=== PATIENT | female | born 1960 | race Caucasian/White ===

== ENCOUNTER 2019-02-06 15:46 | Inpatient (IN) | payer MEDICAID ==
[~2019-02-06] VITALS: Ht 160 cm; Wt 73.5 kg
[2019-02-06 19:18] LABS: BASOPHILS % (AUTO) 0.7 % (0.0-2.0); HEMATOCRIT 39.5 % (36-46); HEMOGLOBIN 13.1 g/dL (12.0-16.0); LYMPHOCYTES # (AUTO) 3.1 K/uL (1.0-4.8); LYMPHOCYTES % (AUTO) 36.8 % (22.0-44.0); MEAN CORPUSCULAR HGB CONC 33.3 G/dL (31.0-37.0); MEAN CORPUSCULAR VOLUME 90 fL (80-100); MONOCYTES # (AUTO) 0.5 K/uL (0.1-1.0); MONOCYTES % (AUTO) 5.8 % (2.0-9.0); NEUTROPHILS # (AUTO) 4.8 K/uL (1.8-7.7); NEUTROPHILS % (AUTO) 55.7 % (40.0-70.0); PLATELET COUNT (AUTO) 296 K/uL (150-450); RED BLOOD CELL COUNT(AUTO) 4.37 MIL/uL (4.00-5.20)
[2019-02-06] MEDS ORDERED: IBUP-2354 PO (19:23)
[2019-02-06] MEDS ORDERED: LOSA25TA41 PO (19:23)
[2019-02-06] MEDS ORDERED: PARO10TA89 PO (19:23)
[2019-02-06] MEDS ORDERED: TRAZ-252 PO (19:23)
[2019-02-06 19:29] LABS: ANION GAP 7 mmol/L (8-16); CALCIUM, TOTAL 9.5 mg/dL (8.8-10.5); CARBON DIOXIDE 26 mmol/L (22-29); CHLORIDE 105 mmol/L (98-107); CREATININE 0.68 mg/dL (0.60-1.30); GLOMERULAR FILTR. RATE CALC > 60 mL/min (>60); GLUCOSE,RANDOM 87 mg/dL (70-110); POTASSIUM 3.8 mmol/L (3.5-5.1); SODIUM SERUM 138 mmol/L (136-145); UREA NITROGEN, BLOOD 12 mg/dL (7-18)
[2019-02-06 19:35] LABS: ALANINE AMINOTRANSFERASE 16 U/L (12-78); ALBUMIN 3.6 g/dL (3.4-5.0); ALKALINE PHOSPHATASE 68 U/L (46-116); ASPARTATE AMINOTRANSFERASE 12 U/L (15-37); BILIRUBIN,TOTAL 0.6 mg/dL (0.1-1.0); TOTAL PROTEIN, SERUM 7.1 g/dL (6.4-8.2)
[2019-02-06 19:55] LABS: AMPHET/METH SCREEN,URINE NEGATIVE (NEGATIVE); BARBITURATE SCREEN, URINE NEGATIVE (NEGATIVE); BENZODIAZEPINES SCREEN,URINE NEGATIVE (NEGATIVE); CANNABINOID SCREEN,URINE POSITIVE (NEGATIVE); COCAINE SCREEN,URINE NEGATIVE (NEGATIVE); METHADONE SCREEN, URINE NEGATIVE (NEGATIVE); OPIATE SCREEN,URINE NEGATIVE (NEGATIVE)
[2019-02-06 19:57] LABS: PHENCYCLIDINE SCREEN,URINE NEGATIVE (NEGATIVE)
[2019-02-06] MEDS ORDERED: ACETAMINOPHEN 325 MG TABLET PO ONE (21:15)
[2019-02-07] MEDS: LORazepam 2 MG TABLET PO PRN ×3 (02:35→17:40)
[2019-02-07 03:47] VITALS: BP 139/103
[2019-02-07] MEDS ORDERED: PETROLATUM,WHITE 28 GM JELLY TP PRN (07:00)
[2019-02-07] MEDS ORDERED: NICOTINE 14 MG/24 HOUR PATCH TD PRN (07:00)
[2019-02-07] MEDS ORDERED: ONDANSETRON HCL 4 MG TABLET PO PRN (07:00)
[2019-02-07] MEDS ORDERED: IBUPROFEN 400 MG TABLET PO PRN (07:00)
[2019-02-07] MEDS ORDERED: ALBUTEROL SULFATE HFA 90 MCG/PUFF 8 GM INHALER IH PRN (07:00)
[2019-02-07] MEDS ORDERED: MAG HYDROX/AL HYDROX/SIMETH ES 30 ML SUSPENSION UDCUP PO PRN (07:00)
[2019-02-07] MEDS ORDERED: DOCUSATE SODIUM 100 MG CAPSULE PO PRN (07:00)
[2019-02-07] MEDS ORDERED: LOPERAMIDE HCL 2 MG CAPSULE PO PRN (07:00)
[2019-02-07] MEDS ORDERED: ACETAMINOPHEN 325 MG TABLET PO PRN (07:00)
[2019-02-07] MEDS ORDERED: GuaiFENesin/D-METHORPHAN [SUGAR-FREE] 200-20MG/10 ML SYRUP UDCUP PO PRN (07:00)
[2019-02-07] MEDS ORDERED: CloNIDine HCL 0.1 MG TABLET PO PRN (07:00)
[2019-02-07] MEDS ORDERED: MAGNESIUM HYDROXIDE SUSPENSION 30 ML UDCUP PO PRN (07:00)
[2019-02-07 08:36] VITALS: BP 135/76
[2019-02-07] MEDS: LOSARTAN POTASSIUM 25 MG TABLET PO SCH (09:19)
[2019-02-07] MEDS: PARoxetine HCL 20 MG TABLET PO SCH (13:35)
[2019-02-07 17:13] VITALS: BP 134/78
[2019-02-07] MEDS: TraZODone HCL 100 MG TABLET PO SCH (20:24)
[2019-02-08 06:25] LABS: BASOPHILS % (AUTO) 0.6 % (0.0-2.0); EOSINOPHILS % (AUTO) 1.3 % (1.0-6.0); HEMATOCRIT 38.7 % (36-46); HEMOGLOBIN 13.2 g/dL (12.0-16.0); LYMPHOCYTES # (AUTO) 2.9 K/uL (1.0-4.8); LYMPHOCYTES % (AUTO) 33.1 % (22.0-44.0); MEAN CORPUSCULAR HEMOGLOBIN 30.7 pg (26.0-34.0); MEAN CORPUSCULAR HGB CONC 34.2 G/dL (31.0-37.0); MEAN CORPUSCULAR VOLUME 90 fL (80-100); MONOCYTES # (AUTO) 0.5 K/uL (0.1-1.0); MONOCYTES % (AUTO) 6.1 % (2.0-9.0); NEUTROPHILS # (AUTO) 5.2 K/uL (1.8-7.7); NEUTROPHILS % (AUTO) 58.9 % (40.0-70.0); PLATELET COUNT (AUTO) 292 K/uL (150-450); RED BLOOD CELL COUNT(AUTO) 4.31 MIL/uL (4.00-5.20); RED CELL DISTRIBUTION WIDTH 13.9 % (11.5-14.5)
[2019-02-08 06:32] LABS: HEMOGLOBIN A1C 5.7 % (4.5-6.2)
[2019-02-08 07:02] LABS: ALANINE AMINOTRANSFERASE 13 U/L (12-78); ALKALINE PHOSPHATASE 58 U/L (46-116); ANION GAP 8 mmol/L (8-16); ASPARTATE AMINOTRANSFERASE 11 U/L (15-37); BILIRUBIN,TOTAL 0.3 mg/dL (0.1-1.0); CALCIUM, TOTAL 8.8 mg/dL (8.8-10.5); CARBON DIOXIDE 26 mmol/L (22-29); CHLORIDE 106 mmol/L (98-107); CREATININE 0.67 mg/dL (0.60-1.30); GLOMERULAR FILTR. RATE CALC > 60 mL/min (>60); GLUCOSE,RANDOM 88 mg/dL (70-110); POTASSIUM 4.1 mmol/L (3.5-5.1); SODIUM SERUM 140 mmol/L (136-145); THYROID STIMULATING HORMONE 0.97 uIU/mL (0.36-3.74); TOTAL PROTEIN, SERUM 6.3 g/dL (6.4-8.2); UREA NITROGEN, BLOOD 17 mg/dL (7-18)
[2019-02-08] MEDS: LOSARTAN POTASSIUM 25 MG TABLET PO SCH (08:16)
[2019-02-08] MEDS: PARoxetine HCL 20 MG TABLET PO SCH (08:16)
[2019-02-08] MEDS: LORazepam 2 MG TABLET PO PRN ×3 (08:17→17:33)
[2019-02-08 08:37] VITALS: BP 135/89
[2019-02-08 17:31] VITALS: BP 132/92
[2019-02-08] MEDS: HALOPERIDOL 5 MG TABLET PO PRN (17:33)
[2019-02-08] MEDS: TraZODone HCL 100 MG TABLET PO SCH (20:46)
[2019-02-08] MEDS: ZOLPIDEM TARTRATE 10 MG TABLET PO PRN (20:52)
[2019-02-09] MEDS: LORazepam 2 MG TABLET PO PRN ×3 (08:03→16:49)
[2019-02-09] MEDS: PARoxetine HCL 20 MG TABLET PO SCH (08:03)
[2019-02-09] MEDS: LOSARTAN POTASSIUM 25 MG TABLET PO SCH (08:04)
[2019-02-09 09:25] VITALS: BP 124/88
[2019-02-09 16:34] VITALS: BP 111/65
[2019-02-09] MEDS: HALOPERIDOL 5 MG TABLET PO PRN (16:49)
[2019-02-09] MEDS: TraZODone HCL 100 MG TABLET PO SCH (20:21)
[2019-02-09] MEDS: ZOLPIDEM TARTRATE 10 MG TABLET PO PRN (21:08)
[2019-02-10 08:37] VITALS: BP 107/71
[2019-02-10] MEDS: LOSARTAN POTASSIUM 25 MG TABLET PO SCH (09:24)
[2019-02-10] MEDS: PARoxetine HCL 20 MG TABLET PO SCH (09:25)
[2019-02-10] MEDS: LORazepam 2 MG TABLET PO PRN ×2 (09:43→17:44)
[2019-02-10] MEDS: HALOPERIDOL 5 MG TABLET PO PRN ×2 (09:44→13:49)
[2019-02-10] MEDS: BusPIRone HCL 5 MG TABLET PO SCH ×2 (13:49→16:50)
[2019-02-10 16:46] VITALS: BP 110/86
[2019-02-10] MEDS ORDERED: BusPIRone HCL 5 MG TABLET PO SCH (17:00)
[2019-02-10] MEDS: TraZODone HCL 100 MG TABLET PO SCH (20:37)
[2019-02-11 08:05] VITALS: BP 117/79
[2019-02-11] MEDS: LOSARTAN POTASSIUM 25 MG TABLET PO SCH (10:17)
[2019-02-11] MEDS: HALOPERIDOL 5 MG TABLET PO PRN (10:17)
[2019-02-11] MEDS: PARoxetine HCL 20 MG TABLET PO SCH (10:17)
[2019-02-11] MEDS: LORazepam 2 MG TABLET PO PRN ×2 (10:17→17:06)
[2019-02-11] MEDS: BusPIRone HCL 5 MG TABLET PO SCH ×3 (10:20→17:06)
[2019-02-11 17:00] VITALS: BP 110/86
[2019-02-11] MEDS: TraZODone HCL 100 MG TABLET PO SCH (20:06)
[2019-02-12] MEDS: LOSARTAN POTASSIUM 25 MG TABLET PO SCH (08:49)
[2019-02-12] MEDS: BusPIRone HCL 5 MG TABLET PO SCH ×3 (08:49→16:38)
[2019-02-12] MEDS: PARoxetine HCL 20 MG TABLET PO SCH (08:49)
[2019-02-12 09:42] VITALS: BP 129/69
[2019-02-12 11:30] VITALS: BP 120/64
[2019-02-12] MEDS: LORazepam 2 MG TABLET PO PRN (11:35)
[2019-02-12 16:21] VITALS: BP 125/78
[2019-02-12] MEDS: HALOPERIDOL 5 MG TABLET PO PRN (17:41)
[2019-02-12] MEDS: TraZODone HCL 100 MG TABLET PO SCH (20:20)
[2019-02-13] MEDS: PARoxetine HCL 20 MG TABLET PO SCH (09:02)
[2019-02-13] MEDS: LORazepam 2 MG TABLET PO PRN ×2 (09:02→17:18)
[2019-02-13] MEDS: BusPIRone HCL 5 MG TABLET PO SCH ×3 (09:02→16:15)
[2019-02-13] MEDS: LOSARTAN POTASSIUM 25 MG TABLET PO SCH (09:03)
[2019-02-13 10:03] VITALS: BP 104/60
[2019-02-13] MEDS: HALOPERIDOL 5 MG TABLET PO PRN (13:44)
[2019-02-13 16:34] VITALS: BP 140/87
[2019-02-13] MEDS: TraZODone HCL 100 MG TABLET PO SCH (20:44)
[2019-02-14] MEDS: BusPIRone HCL 5 MG TABLET PO SCH ×2 (08:41→12:42)
[2019-02-14] MEDS: LOSARTAN POTASSIUM 25 MG TABLET PO SCH (08:41)
[2019-02-14] MEDS: LORazepam 2 MG TABLET PO PRN (08:41)
[2019-02-14] MEDS: PARoxetine HCL 20 MG TABLET PO SCH (08:41)
[2019-02-14 08:51] VITALS: BP 137/96
[2019-02-14] MEDS ORDERED: TRAZ-220 PO (09:24)
[2019-02-14] MEDS ORDERED: PARO20TA24 PO (09:24)
[2019-02-14] MEDS ORDERED: BUSP5TAB20 PO (09:24)
== END 2019-02-14 12:45 | disposition home or self-care (01) | DRG 751 ==
LOC: EMS 15:51 → 3EI 02-07 01:50
DX: F33.2 Major depressive disorder, recurrent severe without psychotic features (principal); R45.851 Suicidal ideations; F17.210 Nicotine dependence, cigarettes, uncomplicated; I10 Essential (primary) hypertension; E78.5 Hyperlipidemia, unspecified; F12.10 Cannabis abuse, uncomplicated; F41.9 Anxiety disorder, unspecified; Z79.899 Other long term (current) drug therapy; F19.10 Other psychoactive substance abuse, uncomplicated
CPT/HCPCS: 83036; 84443; G0480

== ENCOUNTER 2025-06-01 18:17 | Emergency (ER) | payer MEDICAID, MEDICARE, OTHER ==
[~2025-06-01] VITALS: Ht 160 cm; Wt 81.8 kg
[~2025-06-01 18:17] MED LIST: BUSP5TAB20 PO; LOSA-381 PO; PARO-38 PO; TRAZ-257 PO
[2025-06-01 18:39] VITALS: TEMP 98.4
[2025-06-01 19:14] LABS: PLATELET COUNT (AUTO) 336 K/uL (150-450); RED BLOOD CELL COUNT(AUTO) 5.26 MIL/uL (4.00-5.20); RED CELL DISTRIBUTION WIDTH 14.9 % (11.5-14.5); WHITE BLOOD COUNT (AUTO) 8.8 K/uL (4.5-11.0)
[2025-06-01 19:23] LABS: CALCIUM, TOTAL 9.3 mg/dL (8.8-10.5); CREATININE 0.57 mg/dL (0.60-1.30); GLOMERULAR FILTR. RATE CALC > 60 mL/min (>60); GLUCOSE,RANDOM 111 mg/dL (70-110); SODIUM SERUM 138 mmol/L (136-145); UREA NITROGEN, BLOOD 11 mg/dL (7-18)
[2025-06-01 19:34] LABS: TROPONIN I-HIGH SENSITIVITY 8 ng/L (<51)
[2025-06-01 22:13] LABS: ASPARTATE AMINOTRANSFERASE 19.0 U/L (15-37); TOTAL PROTEIN, SERUM 7.7 g/dL (6.4-8.2)
[2025-06-01] MEDS ORDERED: CLON-592 PO (23:07)
[2025-06-01 23:22] VITALS: BP 174/88; PULSE 95; RESP 18; O2SAT 98
[2025-06-02] MEDS ORDERED: CLON-592 PO (13:54)
== END 2025-06-01 23:58 | disposition home or self-care (01) ==
LOC: EMS 18:17
DX: F41.9 Anxiety disorder, unspecified (principal); I10 Essential (primary) hypertension; F17.210 Nicotine dependence, cigarettes, uncomplicated; F12.90 Cannabis use, unspecified, uncomplicated; Z79.899 Other long term (current) drug therapy; Z88.2 Allergy status to sulfonamides
CPT/HCPCS: 80048; 80076; 83690; 84484; 85025; 93005; 99284